=== PATIENT | female | born 1985 | race Caucasian/White ===

== ENCOUNTER 2020-10-09 19:29 | Emergency (ER) | payer OTHER ==
[2020-10-09] MEDS ORDERED: Morphine 4 MG/ML VIAL ONE (20:49)
[2020-10-09] MEDS ORDERED: Ketorolac Tromethamine 30 MG/ML VIAL ONE (20:49)
--- NOTE | 2020-10-09 21:28 | CT ---
CT LUMBAR SPINE 10/09/20 PROVIDED CLINICAL HISTORY: Lumbar spine pain. FINDINGS: Comparison radiographs 03/13/11. Bilateral L5 pars defects with grade II-III spondylolisthesis of L5 on S1 are redemonstrated. Associated severe bilateral foraminal narrowing at L5-S1. No significant trish l stenosis is apparent throughout. Vertebral body heights appear preserved. There is no evidence for fracture or other acute osseous abnormality. The osseous structures demonstrate no concerning lytic o r blastic lesions. IMPRESSION: Bilateral L5 pars defects with grade II-III anterolisthesis of L5 on S1, similar to the prior radiogr aph. POS: ALYSA
--- NOTE | 2020-10-09 21:30 | RAD ---
PORTABLE CHEST: 10/09/20 PROVIDED CLINICAL HISTORY: Fall. FINDINGS: Comparison 05/21/11. Cardiac and mediastinal silhouette is within normal limits. No focal consolidation, pleural fluid or pneumothorax apparent. IMPRESSION: No evidence for an acute cardiopulmonary process. POS: ALYSA
--- NOTE | 2020-10-09 21:31 | RAD ---
PELVIC RADIOGRAPH: 10/09/20 PROVIDED CLINICAL HISTORY: Pain status post injury. FINDINGS: there is no evidence for fracture or other acute osseous abnormality. If there is persistent clinical concern, conservative management and follow-up imaging are advised. IMPRESSION: As above. POS: ALYSA
--- NOTE | 2020-10-09 21:33 | RAD ---
RIGHT HAND RADIOGRAPHS THREE VIEWS: 10/09/20 PROVIDED CLINICAL HISTORY: Pain status post injury. FINDINGS: Comparison 01/25/10. Interval healing of fifth digit proximal phalangeal fracture with apparent ankylosis of the PIP joint . No evidence for an acute fracture or other acute osseous abnormality. If there is persistent clinic al concern, conservative management and follow-up imaging are advised. IMPRESSION: As above. POS: ALYSA
== END 2020-10-09 23:34 | disposition home or self-care (01) ==
LOC: ERS 19:29
DX: M54.41 Lumbago with sciatica, right side (principal); G56.01 Carpal tunnel syndrome, right upper limb; J45.909 Unspecified asthma, uncomplicated; F31.9 Bipolar disorder, unspecified; F41.9 Anxiety disorder, unspecified; F17.210 Nicotine dependence, cigarettes, uncomplicated; W22.8XXA Striking against or struck by other objects, initial encounter
CPT/HCPCS: 71045; 72131; 72170; 96372; J1885; J2270

== ENCOUNTER 2020-10-22 20:51 | Emergency (ER) | payer OTHER ==
--- NOTE | 2020-10-22 22:05 | RAD ---
XR Chest 1 View Portable History: Chest pain Comparison: Radiograph January 09, 2020 Findings: Lungs are clear. No pneumothorax or effusion. Cardiac silhouette and mediastinal contours a re within limits. No acute osseous abnormality. Impression: No acute intrathoracic abnormality.
[2020-10-23 09:17] LABS: SARS-CoV-2 MS2 Positive; SARS-CoV-2 N Gene Negative; SARS-CoV-2 S Gene Negative; SARS-CoV-2 by NAA Not Detected (NotDetected); SARS-CoV-2 orf1ab Negative
== END 2020-10-22 22:44 | disposition home or self-care (01) ==
LOC: ERS 20:51
DX: J02.9 Acute pharyngitis, unspecified (principal); Z20.828 Contact with and (suspected) exposure to other viral communicable diseases; J45.909 Unspecified asthma, uncomplicated; F17.210 Nicotine dependence, cigarettes, uncomplicated
CPT/HCPCS: 71045; 87635; U0003